=== PATIENT | female | born 1975 | race Caucasian/White ===

== ENCOUNTER 2020-05-25 16:15 | Emergency (ER) | payer OTHER ==
[~2020-05-25 16:15] MED LIST: ASPIRIN CHEWABL81 MG PO; BREO ELLIPTA 11 EACH INH; CIPRO250 MG PO; CLARITIN10 MG PO; CLINDAMYCIN 15150 MG PO; DUONEB 2.5-0.5M1 AMP PO; IBUPROFEN800 MG PO; K-DUR20 MEQ PO; LASIX40 MG PO; MOBIC7.5 MG PO; NORCO 5-325 TA1 EACH PO; PROAIR HFA8.5 GM INH; SYNTHROID 0.1M0.1 MG PO
[2020-05-25 18:15] LABS: CORONAVIRUS 2019 SARS-COV-2 POSITIVE (NEGATIVE)
[2020-05-25 18:16] LABS: INFLUENZA A NAA NEGATIVE (NEGATIVE)
[2020-05-25] MEDS ORDERED: ZPAK PO (18:30)
[2020-05-25] MEDS ORDERED: PREDNISONE 20MG20 MG PO (18:30)
== END 2020-05-25 19:07 | disposition home or self-care (01) ==
LOC: FER 16:15
PROVIDERS: Nurse Practitioner Family
DX: U07.1 COVID-19 (principal); I50.9 Heart failure, unspecified; J45.909 Unspecified asthma, uncomplicated; Z88.6 Allergy status to analgesic agent
CPT/HCPCS: 71045; U0002

== ENCOUNTER 2021-10-22 16:10 | Emergency (ER) | payer OTHER ==
[~2021-10-22 16:10] MED LIST changes: +PREDNISONE 20MG20 MG PO; +ZPAK PO
[2021-10-22] MEDS ORDERED: CEPHALEXIN500 M1 PO (16:33)
== END 2021-10-22 16:57 | disposition home or self-care (01) ==
LOC: FER 16:10
DX: K04.7 Periapical abscess without sinus (principal); I11.0 Hypertensive heart disease with heart failure; I50.9 Heart failure, unspecified; E78.5 Hyperlipidemia, unspecified; Z28.310 Unvaccinated for COVID-19; Z88.6 Allergy status to analgesic agent; Z79.82 Long term (current) use of aspirin; Z79.899 Other long term (current) drug therapy
CPT/HCPCS: 99282